=== PATIENT | female | born 1945 | race Hispanic/Latino ===

== ENCOUNTER → 2019-02-10 | Outpatient (CLI) | payer OTHER | END | disposition home or self-care (01) | LOC: OIH 02-07 10:12 | PROVIDERS: ATTEND Internal Medicine | DX: S63.501A Unspecified sprain of right wrist, initial encounter (principal); M19.031 Primary osteoarthritis, right wrist; X58.XXXA Exposure to other specified factors, initial encounter; Y93.89 Activity, other specified; Y92.89 Other specified places as the place of occurrence of the external cause; Y99.8 Other external cause status | CPT/HCPCS: 73100 ==

== ENCOUNTER 2021-07-28 07:41 | Day surgery (SDC) | payer BC, OTHER ==
[2021-07-25 12:51] LABS: BASOPHILS % (AUTO) 0.6 % (0.0-5.0); EOSINOPHILS % (AUTO) 2.6 % (0.0-8.0); HEMATOCRIT 38.1 % (36-48); LYMPHOCYTES % (AUTO) 26.6 % (21.0-51.0); MEAN CORPUSCULAR HEMOGLOBIN 26.9 pg (27.0-33.0); MEAN CORPUSCULAR HGB CONC 31.5 g/dL (32.0-36.0); MEAN CORPUSCULAR VOLUME 85.4 fL (79-99); MONOCYTES % (AUTO) 7.4 % (3.0-13.0); NEUTROPHILS % (AUTO) 62.3 % (40.0-77.0); PLATELET COUNT (AUTO) 166 K/uL (130-400); RED BLOOD CELL COUNT(AUTO) 4.46 MIL/uL (4.00-5.50); RED CELL DISTRIBUTION WIDTH 13.4 % (11.0-15.5); WHITE BLOOD COUNT (AUTO) 6.7 K/uL (4.8-10.8)
[2021-07-25 13:02] LABS: CREATININE 0.7 mg/dL (0.5-1.5)
[2021-07-27 10:36] VITALS: BP 159/66
[2021-07-28] VITALS (16 sets, daily range): BP systolic 124–161; BP diastolic 55–94
[~2021-07-28] VITALS: Ht 157.5 cm; Wt 69.2 kg
[~2021-07-28 07:41] MED LIST: CEFAZOLIN SODIUM 1 GM VIAL IVP SCH
[2021-07-28] MEDS ORDERED: 0.9%NACL 1000ML 1,000 ML IV ONE (08:45)
[2021-07-28] MEDS ORDERED: CARV25TA PO (09:30)
[2021-07-28] MEDS ORDERED: ISOS10TA8 PO (09:30)
[2021-07-28] MEDS ORDERED: GLIM1TAB18 PO (09:30)
[2021-07-28] MEDS ORDERED: AMLO-257 PO (09:30)
[2021-07-28] MEDS ORDERED: METF-527 PO (09:30)
[2021-07-28] MEDS ORDERED: SERT-440 PO (09:30)
[2021-07-28] MEDS ORDERED: POTA-79 PO (09:30)
[2021-07-28] MEDS ORDERED: AMIL5TAB8 PO (09:30)
[2021-07-28] MEDS ORDERED: LOSA50TA64 PO (09:30)
[2021-07-28] MEDS ORDERED: MAGN400T56 PO (09:30)
[2021-07-28] MEDS ORDERED: DEXAMETHASONE SOD PHOSPHATE 10MG/ML 1ML VIAL ONE (12:57)
[2021-07-28] MEDS ORDERED: SUCCINYLCHOLINE 200MG/10ML SYR ONE (12:57)
[2021-07-28] MEDS ORDERED: LIDOCAINE PF 100MG/5ML (2%) SYRINGE 5ML ONE (12:57)
[2021-07-28] MEDS ORDERED: MIDAZOLAM HCL 1 MG/ML 2ML VIAL ONE (12:57)
[2021-07-28] MEDS ORDERED: ONDANSETRON 4MG INJ ONE (12:57)
[2021-07-28] MEDS ORDERED: FENTANYL CITRATE PF 50 MCG/1 ML 2ML VIAL ONE (12:57)
[2021-07-28] MEDS ORDERED: PROPOFOL 10 MG/ML 20ML VIAL IV ONE (12:57)
[2021-07-28] MEDS ORDERED: MEPERIDINE-PF 25 MG/ML SYG ONE (12:58)
[2021-07-28] MEDS ORDERED: EPHEDRINE SULFATE 50 MG/ML AMPULE ONE (13:25)
[2021-07-28] MEDS ORDERED: ACET1TAB25 PO (14:09)
[2021-07-28] MEDS ORDERED: CEPH500B PO (14:48)
== END 2021-07-28 15:35 | disposition home or self-care (01) ==
LOC: DAH 07:41
PROVIDERS: ATTEND Orthopaedic Surgery
DX: M23.321 Other meniscus derangements, posterior horn of medial meniscus, right knee (principal); I10 Essential (primary) hypertension; E11.9 Type 2 diabetes mellitus without complications; Z20.822 Contact with and (suspected) exposure to COVID-19; Z98.890 Other specified postprocedural states; Z98.891 History of uterine scar from previous surgery; Z90.710 Acquired absence of both cervix and uterus; Z90.49 Acquired absence of other specified parts of digestive tract; Z83.3 Family history of diabetes mellitus; Z82.49 Family history of ischemic heart disease and other diseases of the circulatory system; Z79.84 Long term (current) use of oral hypoglycemic drugs; Z79.899 Other long term (current) drug therapy
CPT/HCPCS: 29881; 36415; 80048; 82948 ×2; 85025; 87635; A4215; A4221; A4222; A4223; A4649; A4663; A4930 ×2; A6223; C9803; J0330; J0690; J1100; J2001; J2175; J2250; J2405; J2704; J3010; J3490; J7030; J7120

== ENCOUNTER → 2022-09-20 | Outpatient (CLI) | payer BC, OTHER ==
[~2022-09-20] MED LIST changes: +ACET-2079 PO; +AMIL5TAB8 PO; +AMLO-257 PO; +CARV25TA PO; -CEFAZOLIN SODIUM 1 GM VIAL IVP SCH; +CEPH500B PO; +GLIM1TAB18 PO; +IOHEXOL 350 MG/ML 100ML INFUS..BTL IV ONE; +ISOS10TA8 PO; +LOSA50TA64 PO; +MAGN400T56 PO; +METF-527 PO; +POTA-79 PO; +SERT-440 PO
== END | disposition home or self-care (01) ==
LOC: RAH 11:01 → EDBD 11:01
PROVIDERS: ATTEND Internal Medicine Cardiovascular Disease
DX: I25.119 Atherosclerotic heart disease of native coronary artery with unspecified angina pectoris (principal)
CPT/HCPCS: 75574; Q9967